=== PATIENT | female | born 1985 | race Caucasian/White ===

== ENCOUNTER 2018-02-15 13:01 | Outpatient (CLI) | END 2018-02-15 15:33 | disposition home or self-care (01) ==

== ENCOUNTER 2018-06-06 14:45 | Outpatient (CLI) | payer OTHER ==
[~2018-06-06] VITALS: Ht 154.9 cm; Wt 79.0 kg
[2018-06-06 15:07] VITALS: BP 119/58; PULSE 88; RESP 18; Ht 154.9 cm; Wt 79.0 kg
[2018-06-06] MEDS ORDERED: PREN1TAB13 PO (15:11)
[2018-06-06] MEDS ORDERED: LACTATED RINGER'S 1,000 ML IV SCH (16:30)
[2018-06-06] MEDS ORDERED: TERBUTALINE 1 MG/ML INJ SC ONE (16:30)
--- NOTE | 2018-06-06 16:49 | PN ---
Triage Information Date/Time Reason for visit: Uterine contractions Weeks of Gestation Patient is a 33-year-old 4 para 3 at 36 weeks and 1 day of gestation with estimated date of delivery July 03, 2018 presents with chief complaint of dizziness and lightheadedness. She reports that she is feeling dehydrated and she is having uterine contractions and abdominal pain Patient reports positive movement, denies any vaginal bleeding or leaking fluid She was diagnosed with a urinary tract infection which she has not taken antibiotics yet Past obstetrical history significant for prior x3 She receives her care with Dr. Saldivar at [facility] /Para 4 para 3 Diabetes: none Hypertention: none Objective Vital Signs Date Temp Pulse Resp B/P (MAP) Pulse Ox O2 O2 Flow FiO2 Time Delivery Rate 06/06/18 98.3 88 18 119/58 Room Air 15:07 (78) Heart Rate: 140's Heart Rate Comments heart rate tracing category 1 Contractions: < 5 Minutes Apart Exam Cervix closed per nurse Results/Medications Results 24 hrs Urine Results - 72 Hrs Test 06/06/18 16:00 Urine Color YELLOW (YELLOW) Urine Clarity SLIGHTLY CLOUDY (CLEAR) Urine pH 7.0 (5.0-9.0) Urine Specific [place] 1.009 (1.003-1.030) Urine Ketones NEGATIVE mg/dL (NEGATIVE) Urine Nitrite NEGATIVE mg/dL (NEGATIVE) Urine Bilirubin NEGATIVE mg/dL (NEGATIVE) Urine Urobilinogen NEGATIVE mg/dL (NEGATIVE) Urine Leukocyte Esterase 1+ Brian/ul (NEGATIVE) H Urine Microscopic RBC 1 /HPF (0-5) Urine Microscopic WBC 0 /HPF (0-5) Urine Squamous Epithelial Cells FEW /HPF (FEW) Urine Bacteria FEW /HPF (NONE SEEN) A Urine Hemoglobin NEGATIVE mg/dL (NEGATIVE) Urine Glucose NEGATIVE mg/dL (NEGATIVE) Urine Total Protein NEGATIVE mg/dl (NEGATIVE) Medications Current Medications Lactated Ringer's 1,000 ml @ 125 mls/hr Q8H IV Last administered on 06/06/18at 16:26; Admin Dose 125 MLS/HR; Start 06/06/18 at 16:30 Imaging Results PROCEDURE: US OB. CLINICAL INDICATION: Size and dates TECHNIQUE: Multiple sonographic images of the pelvis and gravid uterus were obtained. The images were reviewed on a PACS workstation. COMPARISON: No prior studies are available for comparison. FINDINGS: Gestation: Single live intrauterine gestation. Cardiac activity: 148 beats per minute. Presentation: Vertex. Placenta: Location: Fundal Appearance: No previa or abruption. Measurements: BPD = 9.5 cm, 38 weeks and 5 days HC = 34.2 cm, 39 weeks and 3 days AC = 32.7 cm, 36 weeks and 5 days FL = 7.3 cm, 37 weeks and 1 day Gestational Age: AUA estimated gestational age: 38 weeks 0 days LMP estimated gestational age: 36 weeks 1 day AUA estimated date of delivery: 06/20/18 The EFW = 3179 g, 82%ile based on LMP age. RPTAT: AA IMPRESSION: Single live intrauterine gestation of 38 weeks 0 days by ultrasound criteria. .Deyvi Clayton MD, MD Date Time Electronically viewed and signed by .Deyvi Clayton MD, MD on 06/06/2018 18:29 .S/ CC: VALERIA HADLEY MD [phone] PROCEDURE: US OB biophysical profile. CLINICAL INDICATION: decreased movements, pain TECHNIQUE: Multiple sonographic images of the pelvis were obtained. The images were reviewed on a PACS workstation. COMPARISON: No prior studies are available for comparison. FINDINGS: There is a single live intrauterine gestation. Cardiac activity is present with 148 beats per minute. There is a vertex presentation. The placenta is fundal. There is no evidence of placental abruption. There is a normal amount of amniotic fluid with an KAYLA = 15.8 cm. Biophysical profile: movement 2/2 tone 2/2. breathing 2/2 KAYLA 2/2 Total 10/15 RPTAT: AA . IMPRESSION: Normal biophysical profile. . .Deyvi Clayton MD, MD Date Time Electronically viewed and signed by .Deyvi Clayton MD, MD on 06/06/2018 18:30 .S/ CC: VALERIA HADLEY MD [phone] Assessment/Plan Patient received IV fluid hydration Patient received terbutaline x1 dose Patient received Tylenol x1 dose Patient received Rocephin 1 g IV x1 dose and she was given a prescription for Macrobid Urine culture was sent Patient continues to complain of abdominal pain therefore will keep the patient for prolonged observation VALERIA HADLEY MD Jun 06, 2018 16:49
[2018-06-06] MEDS ORDERED: ACETAMINOPHEN 325 MG TAB PO ONE (19:30)
[2018-06-06] MEDS ORDERED: SOD CHLORIDE 0.9% 1,000 ML IV SCH (19:30)
[2018-06-06] MEDS ORDERED: CEFTRIAXONE 1 GM/50 ML (PMX) 50 ML IVPB ONE (20:00)
--- NOTE | 2018-06-06 21:20 | TRIAGE ---
OB Triage Datetime Report Generated by CPN: 06/06/2018 21:20 Datetime: 06/06/2018 21:17 Stage of : OB Triage Datetime: 06/06/2018 20:37 Stage of : OB Triage Assessment Type: Triage DTR's/Clonus: DTRs 2+; No Clonus Headache: Denies Blurred Vision: No Respiratory Effort: Unlabored; Regular Rhythm; Equal Expansion Nausea/Vomiting: Denies RUQ Epigastric Pain: Denies Facial Edema: None Fall Risk Assessment History of Falling: (0) No Secondary Diagnosis: (0) No Ambulatory Aid: (0) Bedrest/Nurse Assist Gait: (0) Normal/Bedrest/Immobile Mental Status: (0) Oriented to Own Ability Datetime: 06/06/2018 20:10 Monitor Mode: Palpation Resting Tone Twodot: Relaxed Monitor Mode: External US Datetime: 06/06/2018 20:00 Heart Rate FHR Baseline Rate: 145 Monitor Mode: External US FHR Baseline Changes: No Baseline Change Variability: Moderate 6-25 bpm Datetime: 06/06/2018 18:55 Stage of : OB Triage Datetime: 06/06/2018 17:20 Labor Evaluation Frequency: 0 Monitor Mode: External Pattern: Normal: <= 5 Contractions in 10 Minutes Resting Tone Twodot: Relaxed Heart Rate FHR Baseline Rate: 145 Monitor Mode: External US Variability: Moderate 6-25 bpm Accelerations: 10X10 Decelerations: None Category: Category I Pain Assessment Pain Scale: 0 Pain Presence: None/Denies Pain Type: N/A Pain Goal: 3 Pain Relief Measures: Comfort Measures Datetime: 06/06/2018 16:35 Vaginal Exam Dilatation (cms): 0.0 Exam By: S KORI Vaginal Bleeding: None Cervix, Consistency: Soft Cervix, Position: Posterior Presentation 'A': Cephalic Datetime: 06/06/2018 16:08 Labor Evaluation Frequency: 2-6 Monitor Mode: External Duration (sec)2399: 30-60 Quality: Mild Pattern: Normal: <= 5 Contractions in 10 Minutes Resting Tone Twodot: Relaxed Heart Rate FHR Baseline Rate: 135 Monitor Mode: External US Variability: Moderate 6-25 bpm Accelerations: 10X10 Decelerations: None Category: Category I Pain Assessment Pain Scale: 0 Pain Presence: Intermittent Pain Type: Cramping Pain Location: Abdomen Pain Goal: 3 Pain Relief Measures: Comfort Measures Datetime: 06/06/2018 15:01 Time of Arrival: 06/06/2018 14:40 EGA: 36.1 Arrived By: Ambulatory Arrived From: Home Chief Complaint: DIZZINESS AND FEELING DEHYDRATED Movement: Present Rupture of Membranes: Denies Vaginal Bleeding: None Vaginal Discharge: Denies Recent Sexual Intercouse: Denies Abdominal Trauma: Not Applicable Patient Complaints: Dizziness Time Provider Notified: 06/06/2018 18:55 Provider Notified: DR HADLEY Initial Plan: EFM,CALL DR HADLEY Datetime: 06/06/2018 14:59 Maternal Assessment Level of Consciousness: Fully Conscious DTR's/Clonus: DTRs 2+; No Clonus Headache: Denies Blurred Vision: No Respiratory Effort: Unlabored; Regular Rhythm; Equal Expansion Breath Sounds, Left: Clear and Equal Breath Sounds, Right: Clear and Equal Nausea/Vomiting: Denies RUQ Epigastric Pain: Denies Facial Edema: None Temperature Route: Axillary Fall Risk Assessment History of Falling: (0) No Secondary Diagnosis: (0) No Ambulatory Aid: (0) Bedrest/Nurse Assist IV Therapy: (0) No Gait: (0) Normal/Bedrest/Immobile Mental Status: (0) Oriented to Own Ability Fall Score: 0 Fall Risk Score Definition: No Risk: No action required Datetime: 06/06/2018 14:55 Maternal Assessment Level of Consciousness: Fully Conscious DTR's/Clonus: DTRs 2+ Headache: Denies Blurred Vision: No RUQ Epigastric Pain: Denies Facial Edema: None Labor Evaluation Frequency: NONE Pattern: Normal: <= 5 Contractions in 10 Minutes Resting Tone Twodot: Relaxed Heart Rate FHR Baseline Rate: 140 Monitor Mode: External US FHR Baseline Changes: No Baseline Change Variability: Moderate 6-25 bpm Accelerations: 10X10 Decelerations: None Category: Category I Pain Assessment Pain Scale: 0 Pain Presence: None/Denies Pain Goal: 0 Datetime: 02/15/2018 15:19 Maternal Assessment Level of Consciousness: Fully Conscious Headache: Denies Blurred Vision: No Nausea/Vomiting: Denies RUQ Epigastric Pain: Denies Facial Edema: None Labor Evaluation Frequency: 0 Monitor Mode: External Pattern: Normal: <= 5 Contractions in 10 Minutes Resting Tone Twodot: Relaxed Pain Assessment Pain Scale: 0 Pain Presence: None/Denies Pain Type: N/A Datetime: 02/15/2018 13:05 EGA: 20.2 Datetime: 02/15/2018 13:00 Fall Score: 0 Fall Risk Score Definition: No Risk: No action required
== END 2018-06-06 21:16 | disposition home or self-care (01) ==
LOC: L-D 14:45 → OBT 14:45
PROVIDERS: ATTEND Obstetrics & Gynecology Gynecology
DX: O62.9 Abnormality of forces of labor, unspecified (principal); O23.43 Unspecified infection of urinary tract in pregnancy, third trimester; Z3A.36 36 weeks gestation of pregnancy
CPT/HCPCS: 36415; 76815; 76818; 81001; 87086; 96360; 96361; 96372; J0696; J3105; J7030; J7120; Z7500; G0463